=== PATIENT | female | born 1985 | race Hispanic/Latino ===

== ENCOUNTER 2017-06-04 09:16 | Emergency (ER) | payer SELFPAY ==
[2017-06-04 09:54] LABS: APPEARANCE,URINE SL CLOUDY (CLEAR); BILIRUBIN,URINE NEGATIVE (NEGATIVE); COLOR,URINE YELLOW (YELLOW); GLUCOSE, URINE (UA) NEGATIVE (NEGATIVE); KETONES,URINE NEGATIVE (NEGATIVE); LEUKOCYTE ESTERASE ,URINE SMALL (NEGATIVE); NITRATE,URINE NEGATIVE (NEGATIVE); OCCULT BLOOD,URINE LARGE (NEGATIVE); PROTEIN,URINE 100 (NEGATIVE)
[2017-06-04 10:00] LABS: BACTERIA,URINE Rare /HPF (None Seen); SQUAMOUS EPITHELIAL CELL,UR Few /LPF (0-2); WBC,URINE 26-50 /HPF (0-1)
[2017-06-04 10:02] LABS: HCG,QUAL RESULT NEGATIVE (NEGATIVE)
== END 2017-06-04 10:30 | disposition home or self-care (01) ==
LOC: EDH 09:16
DX: N39.0 Urinary tract infection, site not specified (principal); Z98.890 Other specified postprocedural states
CPT/HCPCS: 81001; 81025

== ENCOUNTER 2017-06-10 09:44 | Emergency (ER) | payer SELFPAY ==
[2017-06-10] MEDS ORDERED: SILVER SULFADIAZINE CREAM 50 GM TP ONE (11:10)
[2017-06-10] MEDS ORDERED: TETANUS/DIPHTHERIA TOXOID [ADULT] 0.5 ML VIAL IM ONE (11:10)
== END 2017-06-10 11:29 | disposition home or self-care (01) ==
LOC: EDH 09:44
DX: T24.202A Burn of second degree of unspecified site of left lower limb, except ankle and foot, initial encounter (principal); T31.0 Burns involving less than 10% of body surface; X19.XXXA Contact with other heat and hot substances, initial encounter; Y93.89 Activity, other specified; Y92.098 Other place in other non-institutional residence as the place of occurrence of the external cause; Y99.8 Other external cause status
CPT/HCPCS: 16000; 81025; 90471; 90714

== ENCOUNTER 2022-05-21 09:34 | Emergency (ER) | payer MEDICAID, OTHER ==
[~2022-05-21] VITALS: Ht 144.8 cm; Wt 72.6 kg
[2022-05-21] MEDS ORDERED: SILV20CR11 TP (11:09)
[2022-05-21] MEDS ORDERED: IBUP-1493 PO (11:09)
[2022-05-21] MEDS ORDERED: SILVER SULFADIAZINE CREAM 50 GM TP SCH (11:30)
[2022-05-21] MEDS ORDERED: TETANUS/DIPHTHERIA TOXOID [ADULT] 0.5 ML VIAL IM ONE (11:30)
[2022-05-21] MEDS ORDERED: SILVER SULFADIAZINE CREAM 400 GM TP SCH (11:30)
[2022-05-21] MEDS ORDERED: IBUPROFEN 800 MG TAB PO ONE (11:30)
[2022-05-21 11:34] VITALS: BP 129/97
== END 2022-05-21 11:40 | disposition home or self-care (01) ==
LOC: EDH 09:34
DX: T22.111A Burn of first degree of right forearm, initial encounter (principal); T31.0 Burns involving less than 10% of body surface; X12.XXXA Contact with other hot fluids, initial encounter; Y93.89 Activity, other specified; Y92.89 Other specified places as the place of occurrence of the external cause; Y99.8 Other external cause status
CPT/HCPCS: 16000; 90471; 90714; 96372